=== PATIENT | male | born 1985 | race Caucasian/White ===

== ENCOUNTER 2016-05-26 22:23 | Inpatient (IN) | payer OTHER ==
[~2016-05-26] VITALS: Ht 167.6 cm; Wt 86.1 kg
[~2016-05-26 22:23] MED LIST: ABIL15TA2 PO; ATOM40 PO; DIVA500T PO; GUAN1TAB PO; LEVO.075 PO; OMEP20TA PO
[2016-05-26 22:50] VITALS: BP_SYST 119; BP_SYST 120; BP_DIAS 61; BP_DIAS 76; PULSE 72; PULSE 80; RESP 16; TEMP 98.6; O2SAT 100; O2SAT 99
[2016-05-26 23:42] LABS: AUTOMATED NEUTROPHIL # 6.4 TH/MM3 (1.8-7.7); BASOPHIL # 0.1 TH/MM3 (0-0.2); BASOPHIL % 0.6 % (0.0-2.0); EOSINOPHIL # 0.2 TH/MM3 (0-0.4); EOSINOPHIL % 1.8 % (0.0-4.0); HEMATOCRIT 40.6 % (39.0-51.0); HEMO FLAGS DIFF FINAL; LYMPH % 21.3 % (9.0-44.0); LYMPHOCYTE # 2.1 TH/MM3 (1.0-4.8); MEAN CELL VOLUME 92.3 FL (80.0-100.0); MEAN CORPUSCULAR HEMOGLOBIN 31.3 PG (27.0-34.0); MEAN CORPUSCULAR HGB CONC 33.9 % (32.0-36.0); MONO % 11.3 % (0.0-8.0); PLATELET COUNT 246 TH/MM3 (150-450); RED CELL DISTRIBUTION WIDTH 13.7 % (11.6-17.2); WHITE BLOOD COUNT 9.9 TH/MM3 (4.0-11.0)
[2016-05-26 23:50] LABS: AMPHETAMINE, URINE NEG (NEG); BARBITURATES, URINE NEG (NEG); COCAINE, URINE NEG (NEG)
[2016-05-27 00:11] LABS: ACETAMINOPHEN LESS THAN 2.0 MCG/ML (10.0-30.0); ALKALINE PHOSPHATASE 68 U/L (45-117); TOTAL BILIRUBIN ADULT 0.3 MG/DL (0.2-1.0)
[2016-05-27 00:35] LABS: ALT (GPT) 14 U/L (12-78); ANION GAP 6 MEQ/L (5-15); AST (GOT) 11 U/L (15-37); BLOOD UREA NITROGEN 18 MG/DL (7-18); CHLORIDE 103 MEQ/L (98-107); GLOMERULAR FILTRATION RATE 90 ML/MIN (>89); POTASSIUM 3.7 MEQ/L (3.5-5.1); SODIUM (NA) 139 MEQ/L (136-145)
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
[2016-05-27 04:00] VITALS: BP 120/76; PULSE 80; RESP 16; O2SAT 100
[2016-05-27 08:00] VITALS: BP 117/62; PULSE 78; RESP 14; O2SAT 99
[2016-05-27] MEDS ORDERED: BENZTROPINE MESYLATE 1 MG TAB PO PRN (08:30)
[2016-05-27] MEDS ORDERED: LORazepam 2 MG/ML VIAL IM PRN (08:30)
[2016-05-27] MEDS ORDERED: LORazepam 1 MG TAB PO PRN (08:30)
[2016-05-27] MEDS ORDERED: MAGNESIUM HYDROXIDE SUSP 30 ML CUP PO PRN (08:30)
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
[2016-05-27] MEDS ORDERED: BENZTROPINE MESYLATE 2 MG/2 ML VIAL IM PRN (09:00)
[2016-05-27] MEDS ORDERED: ACETAMINOPHEN 325 MG TAB PO PRN (09:00)
[2016-05-27] MEDS ORDERED: guanFACINE HCL 1 MG TAB PO SCH (09:00)
[2016-05-27] MEDS: NICOTINE 21 MG/24 HR PATCH T-DERMAL SCH (09:00)
[2016-05-27] MEDS ORDERED: ALUMINUM/MAGNESIUM/SIMETH 30 ML CUP PO PRN (09:00)
[2016-05-27] MEDS ORDERED: ARIPiprazole 15 MG TAB PO SCH (09:00)
[2016-05-27] MEDS: REMOVE OLD PATCH T-DERMAL SCH (09:00)
[2016-05-27] MEDS: PANTOPRAZOLE SOD 20 MG DELAYED RELEASE TAB PO SCH (09:58)
[2016-05-27] MEDS: DIVALPROEX DR 500 MG TABEC PO SCH ×2 (10:04→21:22)
[2016-05-27] MEDS: LEVOTHYROXINE SODIUM 75 MCG TAB PO SCH (10:05)
[2016-05-27 10:30] VITALS: BP 117/70; PULSE 69; RESP 18; TEMP 97.3; O2SAT 97
[2016-05-27 17:49] VITALS: BP 118/76; PULSE 59; TEMP 98; O2SAT 98
[2016-05-28] MEDS: LEVOTHYROXINE SODIUM 75 MCG TAB PO SCH (05:44)
[2016-05-28 06:07] VITALS: BP 119/74; PULSE 62; RESP 17; TEMP 97.1; O2SAT 97
[2016-05-28 07:44] LABS: ANION GAP 6 MEQ/L (5-15); BICARBONATE 28.6 MEQ/L (21.0-32.0); BLOOD UREA NITROGEN 11 MG/DL (7-18); CHLORIDE 104 MEQ/L (98-107); GLOMERULAR FILTRATION RATE 100 ML/MIN (>89); POTASSIUM 4.2 MEQ/L (3.5-5.1); SODIUM (NA) 139 MEQ/L (136-145)
[2016-05-28 07:54] LABS: LDL CHOLESTEROL 79 MG/DL (0-99)
[2016-05-28] MEDS: DIVALPROEX DR 500 MG TABEC PO SCH ×2 (08:53→22:13)
[2016-05-28] MEDS: PANTOPRAZOLE SOD 20 MG DELAYED RELEASE TAB PO SCH (08:53)
[2016-05-28] MEDS: NICOTINE 21 MG/24 HR PATCH T-DERMAL SCH (09:00)
[2016-05-28] MEDS: REMOVE OLD PATCH T-DERMAL SCH (09:00)
[2016-05-28 09:27] LABS: HEMOGLOBIN A1a 1.2 %; HEMOGLOBIN A1b 0.8 %; HEMOGLOBIN Ao 85.1 %; HEMOGLOBIN F 0.8 %; HEMOGLOBIN P3 3.8 %
--- NOTE | 2016-05-28 16:38 | HHI.PYPN ---
Subjective Remarks Patient is asking to leave the hospital and is calm but obviously shows a lack of insight and judgment. This physician reviewed the patient's record and the patient has little or no insight into why he is currently hospitalized. He has been started back on his psychotropic medicines but does not know their names and does not know what they are for. He continues to show evidence of poor insight and poor judgment and poor reasoning. Review of Systems Except as stated in HPI: all other systems reviewed are Neg Objective Alert: Yes [place]: Person, Place, Date, Situation Mood: Calm, Oppositional Affect: Restricted Memory Intact: Immediate, Remote Hallucinations: Other Delusions: No Delusion Type: Other Suicidal: Ideation Homicidal: Ideation Insight/Judgement Impaired Labs Test 05/28/16 06:29 Sodium Level 139 MEQ/L Potassium Level 4.2 MEQ/L Chloride Level 104 MEQ/L Carbon Dioxide Level 28.6 MEQ/L Anion Gap 6 MEQ/L Blood Urea Nitrogen 11 MG/DL Creatinine 0.89 MG/DL Estimat Glomerular Filtration 100 ML/MIN Rate Random Glucose 95 MG/DL Hemoglobin A1c 5.7 % Calcium Level 8.8 MG/DL Triglycerides Level 129 MG/DL Cholesterol Level 136 MG/DL LDL Cholesterol 79 MG/DL HDL Cholesterol 31.0 MG/DL Cholesterol/HDL Ratio 4.38 RATIO Thyroid Stimulating Hormone 1.490 uIU/ML 3rd Gen Vitals/IOs Vital Signs Date Time Temp Pulse Resp B/P Pulse Ox O2 Delivery O2 Flow Rate FiO2 05/28/16 06:07 97.1 62 17 119/74 97 05/27/16 08:00 Room Air Assessment & Plan Problem List: (1) Intermittent explosive disorder ICD Code: F63.81 Assessment & Plan Estimated LOS 3: days patient to be evaluated for the effectiveness of his mood stabilizing medications including Depakote, antipsychotic medicine, etc. Justification for Cont. Inpt. Poor insight, poor judgment and aggressive behavior. Arnold Wynn MD May 28, 2016 16:38
[2016-05-28 17:53] VITALS: BP 123/63; PULSE 70; RESP 18; TEMP 97.1; O2SAT 99
[2016-05-28] MEDS: diphenhydrAMINE HCL 50 MG CAP PO PRN (22:13)
[2016-05-29 06:04] VITALS: BP 98/54; PULSE 64; RESP 16; TEMP 97.8; O2SAT 97
[2016-05-29] MEDS: LEVOTHYROXINE SODIUM 75 MCG TAB PO SCH (06:28)
[2016-05-29] MEDS: PANTOPRAZOLE SOD 20 MG DELAYED RELEASE TAB PO SCH (08:37)
[2016-05-29] MEDS: DIVALPROEX DR 500 MG TABEC PO SCH ×2 (08:37→20:55)
[2016-05-29] MEDS: REMOVE OLD PATCH T-DERMAL SCH (09:00)
[2016-05-29] MEDS: NICOTINE 21 MG/24 HR PATCH T-DERMAL SCH (09:00)
--- NOTE | 2016-05-29 11:06 | HHI.PYPN ---
Subjective Remarks Patient is not aggressive but continues to be easily excited. This physician has placed him on 20 mg a day of Abilify and he is tolerating that medicine and his Depakote well. If the medicine continues to increase in his plasma, he may be a candidate for discharge tomorrow. Review of Systems ROS Limitations: Clinical Condition Except as stated in HPI: all other systems reviewed are Neg Objective Alert: Yes [place]: Person, Place, Date, Situation Mood: Anxious, Oppositional Affect: Labile Memory Intact: Immediate, Remote Hallucinations: Other Delusions: No Delusion Type: Other Suicidal: Ideation Homicidal: Ideation Insight/Judgement Impaired but improving. Vitals/IOs Vital Signs Date Time Temp Pulse Resp B/P Pulse Ox O2 Delivery O2 Flow Rate FiO2 05/29/16 06:04 97.8 64 16 98/54 97 05/27/16 08:00 Room Air Assessment & Plan Problem List: (1) Intermittent explosive disorder ICD Code: F63.81 Assessment & Plan Estimated LOS: 1 days disposition is waiting for increase in plasma levels of aripiprazole and Depakote. If patient continues to improve with regard to his excitability, impulsivity and aggression he may be discharged tomorrow. Justification for Cont. Inpt. Awaiting therapeutic levels of mood stabilizing medications. Arnold Wynn MD May 29, 2016 11:06
[2016-05-29 16:51] VITALS: BP 132/75; PULSE 71; RESP 18; TEMP 98; O2SAT 98
[2016-05-29] MEDS: diphenhydrAMINE HCL 50 MG CAP PO PRN (22:02)
[2016-05-30 06:02] VITALS: BP 119/58; PULSE 70; RESP 18; TEMP 97.8; O2SAT 96
[2016-05-30] MEDS: LEVOTHYROXINE SODIUM 75 MCG TAB PO SCH (06:18)
[2016-05-30] MEDS: PANTOPRAZOLE SOD 20 MG DELAYED RELEASE TAB PO SCH (08:27)
[2016-05-30] MEDS: DIVALPROEX DR 500 MG TABEC PO SCH (08:27)
[2016-05-30] MEDS: NICOTINE 21 MG/24 HR PATCH T-DERMAL SCH (08:28)
[2016-05-30] MEDS: REMOVE OLD PATCH T-DERMAL SCH (08:29)
[2016-05-30] MEDS ORDERED: ARIP1TAB7 PO (13:35)
[2016-05-30] MEDS ORDERED: PANT20 PO (13:35)
[2016-05-30] MEDS ORDERED: LEVO.075 PO (13:35)
[2016-05-30] MEDS ORDERED: DIVA500T PO (13:35)
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
== END 2016-05-30 14:00 | disposition home or self-care (01) | DRG 883 ==
LOC: NEPA 22:23 → NEDA 05-27 08:16 → H260 05-27 10:30
PROVIDERS: ADMIT Psychiatry & Neurology Psychiatry; ATTEND Psychiatry & Neurology Psychiatry
DX: F63.81 Intermittent explosive disorder (principal); F79 Unspecified intellectual disabilities; F31.9 Bipolar disorder, unspecified
CPT/HCPCS: 80048; 80053; 80061; 80164; 80307; 83036; 84443; 85025; 99284; Q0163

== ENCOUNTER 2016-09-28 15:58 | Emergency (ER) | payer OTHER ==
[~2016-09-28] VITALS: Ht 167.6 cm; Wt 92.5 kg
[~2016-09-28 15:58] MED LIST changes: +ARIP1TAB7 PO; +PANT20 PO
[2016-09-28 16:12] VITALS: BP 147/68; PULSE 81; RESP 16; TEMP 98.8; O2SAT 100
[2016-09-28] MEDS ORDERED: ATOM25 PO (17:05)
[2016-09-28] MEDS ORDERED: DEPA500T PO (17:05)
[2016-09-28] MEDS ORDERED: PENI250T PO (17:16)
--- NOTE | 2016-09-28 17:17 | PD ---
HPI Chief Complaint: Oral / Dental Pain or Problem Time Seen by Provider: 17:13 Travel History International Travel<30 days: No Contact w/Intl Traveler<30days: No Traveled to known affect area: No History of Present Illness HPI 31-year-old male with chief complaint of left lower dental pain 4 days. Patient has widespread dental decay. Pain is constant, nonradiating. He denies fever or chills. Symptoms severity mild. No aggravating or alleviating factors. PFSH Past Medical History ADHD: Yes Bipolar Disorder: Yes Cardiovascular Problems: No Diabetes: Yes (Borderline ) Patient Takes Glucophage: No Musculoskeletal: No Neurologic: No Psychiatric: Yes (MOOD SWINGS) Respiratory: No Immunizations Current: Yes Past Surgical History Cholecystectomy: Yes Social History Alcohol Use: Yes (rare) Tobacco Use: Yes (1PPD) Substance Use: No Allergies-Medications (Allergen,Severity, Reaction): Coded Allergies: Gabapentin (Verified Adverse Reaction, Intermediate, Tic, 09/28/16) Risperdal (Verified Adverse Reaction, Intermediate, Gynecomastia , 09/28/16) Reported Meds & Prescriptions Reported Meds & Active Scripts Active Penicillin V Potassium 250 Mg Tab 250 Mg PO Q6H Reported Depakote DR (Divalproex Sodium) 500 Mg Tabdr 500 Mg PO TID Strattera (Atomoxetine HCl) 25 Mg Cap 25 Mg PO DAILY Review of Systems Except as stated in HPI: all other systems reviewed are Neg General / Constitutional: No: Fever Eyes: No: Visual changes Physical Exam Narrative GENERAL: Well-nourished, well-developed patient. SKIN: Focused skin assessment warm/dry. HEAD: Normocephalic. EYES: No scleral icterus. No injection or drainage. MOUTH: Mucous membranes moist, no lesions. Widespread dental decay. Tooth #20 decayed with surrounding gum erythema NECK: Supple, trachea midline. No JVD or lymphadenopathy. CARDIOVASCULAR: Regular rate and rhythm without murmurs, gallops, or rubs. RESPIRATORY: Breath sounds equal bilaterally. No accessory muscle use. GASTROINTESTINAL: Abdomen soft, non-tender, nondistended. Data Data Last Documented VS Vital Signs Date Time Temp Pulse Resp B/P Pulse Ox O2 Delivery O2 Flow Rate FiO2 09/28/16 16:12 98.8 81 16 147/68 100 MDM Medical Decision Making Medical Screen Exam Complete: Yes Emergency Medical Condition: Yes Differential Diagnosis Periodontal disease, dental abscess, dental caries Narrative Course 31-year-old male with chief complaint of left lower dental pain. On exam patient has widespread dental decay. Tooth #20 is decayed was running, erythema. Patient be treated for dental infection Diagnosis Primary Impression: Dental infection Referrals: Dentist Scripts Penicillin V Potassium 250 Mg Toy332 Mg PO Q6H #28 TAB Prov:Pham Jackson 09/28/16 Disposition: 01 DISCHARGE HOME Condition: Stable Pham Jackson Sep 28, 2016 17:17
== END 2016-09-28 17:55 | disposition home or self-care (01) ==
LOC: PHED 15:58 → PHEFT 17:55
DX: K04.7 Periapical abscess without sinus (principal); F17.200 Nicotine dependence, unspecified, uncomplicated
CPT/HCPCS: 99283